=== PATIENT | female | born 1960 | race Caucasian/White ===

== ENCOUNTER 2017-12-27 09:16 | Day surgery (SDC) | payer BC ==
[~2017-12-27 09:16] MED LIST: CEFAZOLIN 2 GM/50 ML (PMX) 50 ML IVPB; SOD CHLORIDE 0.9% 1,000 ML IV
[2017-12-27] MEDS ORDERED: MIDAZOLAM 1 MG/ML 2 ML INJ (13:19)
[2017-12-27] MEDS: BUPIVACAINE 0.25% (MPF) 30 ML INJ (13:56)
[2017-12-27] MEDS ORDERED: KETOROLAC 30 MG INJ (14:03)
[2017-12-27] MEDS ORDERED: ONDANSETRON 4 MG INJ (14:03)
[2017-12-27] MEDS ORDERED: PROPOFOL 20 ML (14:09)
[2017-12-27] MEDS ORDERED: CEFAZOLIN 1 GM INJ (14:09)
[2017-12-27] MEDS ORDERED: ROCURONIUM 50 MG INJ (14:09)
[2017-12-27] MEDS ORDERED: GLYCOPYRROLATE 0.4 MG INJ (14:09)
[2017-12-27] MEDS ORDERED: LIDOCAINE 2% (SDV) 5 ML INJ (14:09)
[2017-12-27] MEDS ORDERED: NEOSTIGMINE 3 MG/3 ML SYRINGE (14:09)
[2017-12-27] MEDS ORDERED: HYDROCODONE/APAP (5/325) TAB PO (14:30)
[2017-12-27] MEDS ORDERED: FENTAnyl 50 MCG/ML VIAL (14:40)
[2017-12-27] MEDS: FENTAnyl 50 MCG/ML VIAL IV ×2 (14:42→14:50)
[2017-12-27] MEDS ORDERED: FENTAnyl 50 MCG/ML VIAL IV ×2 (15:00)
[2017-12-27] MEDS ORDERED: MEPERIDINE 25 MG INJ IV (15:00)
[2017-12-27] MEDS ORDERED: ONDANSETRON 4 MG INJ IV (15:00)
[2017-12-27] MEDS ORDERED: HYDROmorphONE (0.2 MG/ML) 10ML SYG IV ×2 (15:00)
[2017-12-27] MEDS: HYDROmorphONE (0.2 MG/ML) 10ML SYG IV (15:03)
== END 2017-12-27 16:33 | disposition home or self-care (01) ==
LOC: SDS 09:16
DX: K80.10 Calculus of gallbladder with chronic cholecystitis without obstruction (principal)
CPT/HCPCS: 47562; 88304